=== PATIENT | female | born 1990 ===

== ENCOUNTER 2021-09-09 14:43 | Emergency (ER) | payer SELFPAY | END 2021-09-09 15:30 | disposition home or self-care (01) | LOC: DL.ED 14:43 | DX: H69.83 Other specified disorders of Eustachian tube, bilateral (principal); K21.00 Gastro-esophageal reflux disease with esophagitis, without bleeding; I10 Essential (primary) hypertension; Z88.1 Allergy status to other antibiotic agents; Z88.8 Allergy status to other drugs, medicaments and biological substances; Z86.16 Personal history of COVID-19; Z79.899 Other long term (current) drug therapy | CPT/HCPCS: 99282 ==

== ENCOUNTER 2021-09-29 09:16 | Emergency (ER) | payer SELFPAY | END 2021-09-29 10:01 | disposition home or self-care (01) | LOC: DL.ED 09:16 | DX: T70.0XXA Otitic barotrauma, initial encounter (principal); M76.9 Unspecified enthesopathy, lower limb, excluding foot; H69.83 Other specified disorders of Eustachian tube, bilateral; I10 Essential (primary) hypertension; Z79.899 Other long term (current) drug therapy; Z88.1 Allergy status to other antibiotic agents; Z88.8 Allergy status to other drugs, medicaments and biological substances | CPT/HCPCS: 99283 ==

== ENCOUNTER 2021-10-08 18:17 | Emergency (ER) | payer SELFPAY | END 2021-10-08 19:37 | disposition home or self-care (01) | LOC: DL.ED 18:17 | DX: J35.8 Other chronic diseases of tonsils and adenoids (principal); H65.91 Unspecified nonsuppurative otitis media, right ear; Z88.1 Allergy status to other antibiotic agents; Z88.5 Allergy status to narcotic agent; Z88.8 Allergy status to other drugs, medicaments and biological substances; Z79.899 Other long term (current) drug therapy; Z86.16 Personal history of COVID-19 | CPT/HCPCS: 87081; 87430; 99283 ==

== ENCOUNTER 2022-10-02 17:07 | Emergency (ER) | payer MEDICAID | END 2022-10-02 18:15 | disposition home or self-care (01) | LOC: DL.ED 17:07 | DX: I10 Essential (primary) hypertension (principal); Z76.0 Encounter for issue of repeat prescription; Z88.1 Allergy status to other antibiotic agents; Z88.5 Allergy status to narcotic agent; Z88.8 Allergy status to other drugs, medicaments and biological substances; Z79.899 Other long term (current) drug therapy; Z86.16 Personal history of COVID-19 | CPT/HCPCS: 99283 ==